=== PATIENT | female | born 2000 | race Caucasian/White ===

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

== ENCOUNTER → 2022-12-19 | Emergency (ER) | payer BC ==
[~2022-12-19] VITALS: Ht 170.2 cm; Wt 49.9 kg
[~2022-12-19] MED LIST: CYCL5TAB PO; CYCLOBENZAPRINE 10 MG TABLET ONE; CYCLOBENZAPRINE 10 MG TABLET PO ONE; IBUP-1957 PO; KETOROLAC TROMETHAMINE INJ 30 MG/ML VIAL ONE; KETOROLAC TROMETHAMINE INJ 60 MG/2 ML VIAL IM ONE; NAPR-1164 PO; ONDA4TAB5 PO
[2022-12-19 14:56] LABS: PREGNANCY TEST URINE QUAL NEGATIVE (NEGATIVE)
[2022-12-19 16:05] VITALS: BP 108/66; TEMP 97.6; O2SAT 100
== END | disposition home or self-care (01) ==
LOC: ER 13:10
DX: S13.4XXA Sprain of ligaments of cervical spine, initial encounter (principal); Z88.0 Allergy status to penicillin; V89.2XXA Person injured in unspecified motor-vehicle accident, traffic, initial encounter; Y93.89 Activity, other specified; Y92.89 Other specified places as the place of occurrence of the external cause; Y99.8 Other external cause status
CPT/HCPCS: 99285; 72125; 96372; 84703; J1885

== ENCOUNTER 2024-07-21 05:25 | Emergency (ER) | payer BC ==
[~2024-07-21] VITALS: Ht 170.2 cm; Wt 56.7 kg
[~2024-07-21 05:25] MED LIST changes: -CYCLOBENZAPRINE 10 MG TABLET ONE; -CYCLOBENZAPRINE 10 MG TABLET PO ONE; -KETOROLAC TROMETHAMINE INJ 30 MG/ML VIAL ONE; -KETOROLAC TROMETHAMINE INJ 60 MG/2 ML VIAL IM ONE
[2024-07-21 06:02] VITALS: BP 100/56; TEMP 98.7; O2SAT 99
[2024-07-21] MEDS ORDERED: AZIT250T13 PO (06:07)
[2024-07-21] MEDS ORDERED: NAPR-1164 PO (06:07)
== END 2024-07-21 06:18 | disposition home or self-care (01) ==
LOC: ER 05:25
DX: J02.9 Acute pharyngitis, unspecified (principal); Z79.1 Long term (current) use of non-steroidal anti-inflammatories (NSAID); Z88.0 Allergy status to penicillin
CPT/HCPCS: 86403-TC; 87070-TC